=== PATIENT | female | born 2000 | race Two or more races ===

== ENCOUNTER → 2020-12-01 | Outpatient (CLI) | payer OTHER | END | disposition home or self-care (01) | LOC: PRENATAL 14:00 | PROVIDERS: ATTEND Obstetrics & Gynecology Maternal & Fetal Medicine | DX: O35.0XX1 Maternal care for (suspected) central nervous system malformation in fetus, fetus 1 (principal); O35.3XX1 Maternal care for (suspected) damage to fetus from viral disease in mother, fetus 1; O98.512 Other viral diseases complicating pregnancy, second trimester; Z36.89 Encounter for other specified antenatal screening; Z3A.21 21 weeks gestation of pregnancy ==

== ENCOUNTER 2021-02-14 11:25 | Outpatient (CLI) | payer OTHER | END 2021-02-14 14:06 | disposition home or self-care (01) | LOC: PRENATAL 11:25 | PROVIDERS: ATTEND Obstetrics & Gynecology Maternal & Fetal Medicine | DX: O26.843 Uterine size-date discrepancy, third trimester (principal); O36.8131 Decreased fetal movements, third trimester, fetus 1; Z36.89 Encounter for other specified antenatal screening; Z3A.31 31 weeks gestation of pregnancy ==

== ENCOUNTER 2025-05-05 22:00 | Emergency (ER) | payer OTHER ==
[~2025-05-05] VITALS: Ht 154.9 cm; Wt 79.4 kg
[2025-05-05] MEDS ORDERED: FAMOtidine 10 MG/ML (4ML VIAL) IV ONE (22:30)
[2025-05-05] MEDS ORDERED: ONDANSETRON HCL 2 MG/ML VIAL IV ONE (22:30)
[2025-05-05] MEDS ORDERED: 0.9 % SODIUM CHLORIDE 1,000 ML IV ONE (22:30)
[2025-05-05] MEDS ORDERED: ACETAMINOPHEN 500 MG GEL..CAP PO ONE (22:45)
[2025-05-05 23:22] LABS: BASO % 0.2 % (0.1-1.2); EOS # 0.03 (0.04-0.54); EOS % 0.2 % (0.7-7.0); LYMPH # 2.03 (1.18-3.74); LYMPH % 14.6 % (19.3-53.1); MONO # 0.71 (0.24-0.82); MONO % 5.1 % (4.7-12.5); NEUT # 11.09 (1.56-6.13); NEUT % 79.6 % (34.0-71.1); RED CELL DISTRIBUTION WIDTH 17.7 % (11.6-14.4)
[2025-05-05 23:43] LABS: COVID-19 AG NEGATIVE (NEGATIVE)
[2025-05-06] MEDS ORDERED: PEPCID AC20 MG PO (00:20)
[2025-05-06] MEDS ORDERED: DICLEGIS DR 101 EACH PO (00:20)
[2025-05-06] MEDS ORDERED: ZOFRAN8 MG PO (00:20)
== END 2025-05-06 00:36 | disposition home or self-care (01) ==
LOC: ER 22:00
PROVIDERS: General Practice
DX: O21.8 Other vomiting complicating pregnancy (principal); Z3A.12 12 weeks gestation of pregnancy; R51.9 Headache, unspecified; Z20.822 Contact with and (suspected) exposure to COVID-19

== ENCOUNTER → 2025-05-20 08:21 | Outpatient (CLI) | payer OTHER ==
[~2025-05-20 08:21] MED LIST: DICLEGIS DR 101 EACH PO; PEPCID AC20 MG PO; ZOFRAN8 MG PO
== END | disposition home or self-care (01) ==
LOC: PRENATAL 08:21
PROVIDERS: ATTEND Obstetrics & Gynecology Maternal & Fetal Medicine
DX: O36.80X0 Pregnancy with inconclusive fetal viability, not applicable or unspecified (principal); Z36.82 Encounter for antenatal screening for nuchal translucency; Z14.8 Genetic carrier of other disease; Z3A.14 14 weeks gestation of pregnancy